=== PATIENT | female | born 1940 | race Caucasian/White ===

== ENCOUNTER 2017-04-12 12:44 | Emergency (ER) | payer OTHER ==
[~2017-04-12] VITALS: Ht 165.1 cm; Wt 72.6 kg
--- NOTE | 2017-04-12 12:50 | NUR ---
[id number] from home for s/p fall, +hematoma, +head lac, no KO, [id number] in the field. vss nad rr even and unlabored. pending er md evaluation. pt is deaf
--- NOTE | 2017-04-12 13:25 | NUR ---
pt taken to ct scan
[2017-04-12 13:26] LABS: HEMATOCRIT 39 % (33-45); HEMOGLOBIN 13.2 g/dL (11.5-14.8); MEAN CORPUSCULAR HEMOGLOBIN 32 PG (26.0-33.0); MEAN CORPUSCULAR HGB CONC 34 g/dl (31.0-36.0); MEAN CORPUSCULAR VOLUME 94 fL (82-100); PLATELET COUNT (AUTO) 235 /CMM (150-450); RDW COEFFICIENT OF VARIATION 12.3 (11.5-15.0); RED BLOOD CELL COUNT(AUTO) 4.08 MIL/uL (4.0-5.2); WHITE BLOOD COUNT (AUTO) 7.5 K/uL (4.3-11.0)
[2017-04-12] MEDS ORDERED: TDAP [DIPH/PERTUSSIS/TET] 0.5 ML VIAL IM ONE (13:36)
[2017-04-12 13:41] LABS: CALCIUM, SERUM 9.3 mg/dL (8.5-10.1); CARBON DIOXIDE 27 mmol/L (21-32); CHLORIDE 105 mmol/L (98-107); CREATININE 0.9 mg/dL (0.6-1.3); GLUCOSE 98 mg/dL (74-106); POTASSIUM 3.9 mmol/L (3.5-5.1); SODIUM SERUM 139 mmol/L (136-145); UREA NITROGEN, BLOOD 20 mg/dL (7-18)
[2017-04-12] MEDS: TDAP [DIPH/PERTUSSIS/TET] 0.5 ML VIAL IM ONE (13:44)
[2017-04-12 14:02] LABS: INR 0.93 (0.87-1.13); PROTHROMBIN TIME 9.7 SECS (9.5-12.7)
[2017-04-12] MEDS ORDERED: LIDOCAINE 1%-EPI 1:100,000 50 ML VIAL IJ ONE (14:33)
[2017-04-12 15:17] LABS: LYMPHOCYTES % (MANUAL) 19 % (16-48); MONOCYTES % (MANUAL) 6 % (0-11.0); NEUTROPHILS % (MANUAL) 75 (42-76)
[2017-04-12 15:58] VITALS: BP 142/68
[2017-04-12] MEDS: LIDOCAINE 1%-EPI 1:100,000 20 ML VIAL TP ONE (15:58)
--- NOTE | 2017-04-12 15:58 | NUR ---
Patient discharged to home in stable condition. Written and verbal after care instructions given. Patient andfamily members verbalizes understanding of instruction.
== END 2017-04-12 15:59 | disposition home or self-care (01) ==
LOC: ER 12:46
DX: S01.01XA Laceration without foreign body of scalp, initial encounter (principal); W19.XXXA Unspecified fall, initial encounter; Y93.89 Activity, other specified; Y92.89 Other specified places as the place of occurrence of the external cause; Y99.8 Other external cause status
CPT/HCPCS: 12002; 36415; 70450; 72125; 80048; 85025; 85730; 90471; 90715; 99285; A4606; A6403; J3490; Z7610

== ENCOUNTER 2017-07-25 12:40 | Emergency (ER) | payer OTHER ==
[~2017-07-25] VITALS: Ht 162.6 cm; Wt 56.7 kg
--- NOTE | 2017-07-25 12:41 | NUR ---
LACERATION TO BACK OF HEAD S/P MECHANICAL FALL x 2 HR [facility] LAST TDAP ~ 1 YEAR AGO
[2017-07-25] MEDS ORDERED: TDAP [DIPH/PERTUSSIS/TET] 0.5 ML VIAL IM ONE ×2 (13:27→13:30)
--- NOTE | 2017-07-25 13:28 | NUR ---
TDAP CANCELLED RECEIVED IN 2016
--- NOTE | 2017-07-25 13:36 | NUR ---
PT BACK FROM CT
--- NOTE | 2017-07-25 14:20 | NUR ---
Patient discharged to home in stable condition. Written and verbal after care instructions given. Patient verbalizes understanding of instruction.
[2017-07-25 14:23] VITALS: BP 135/74
== END 2017-07-25 14:24 | disposition home or self-care (01) ==
LOC: ER 12:45
DX: S01.01XA Laceration without foreign body of scalp, initial encounter (principal); F03.90 Unspecified dementia, unspecified severity, without behavioral disturbance, psychotic disturbance, mood disturbance, and anxiety; W18.39XA Other fall on same level, initial encounter; Y93.01 Activity, walking, marching and hiking; Y92.89 Other specified places as the place of occurrence of the external cause; Y99.8 Other external cause status
CPT/HCPCS: 70450-TC; 71045-TC; 90715; A4606; A6402; Z7610

== ENCOUNTER 2020-05-05 11:27 | Emergency (ER) | payer OTHER ==
[~2020-05-05] VITALS: Ht 175.3 cm; Wt 54.4 kg
--- NOTE | 2020-05-05 11:38 | NUR ---
DAVID MORALES AT BEDSIDE FOR WOUND CLEANING.
[2020-05-05 11:40] VITALS: BP 115/61
--- NOTE | 2020-05-05 11:47 | NUR ---
SEEN AND EXAMINED BY
--- NOTE | 2020-05-05 12:34 | NUR ---
PT IS WHEELED TO CT SCAN.
--- NOTE | 2020-05-05 15:08 | NUR ---
Patient discharged to home in stable condition. Written and verbal after care instructions given. Patient verbalizes understanding of instruction.
== END 2020-05-05 15:09 | disposition home or self-care (01) ==
LOC: ER 11:30
DX: S00.01XA Abrasion of scalp, initial encounter (principal); F03.90 Unspecified dementia, unspecified severity, without behavioral disturbance, psychotic disturbance, mood disturbance, and anxiety; W18.39XA Other fall on same level, initial encounter; Y93.89 Activity, other specified; Y92.89 Other specified places as the place of occurrence of the external cause; Y99.8 Other external cause status
CPT/HCPCS: 70450; 99284; A6403

== ENCOUNTER 2022-01-01 17:49 | Emergency (ER) | payer OTHER ==
[~2022-01-01] VITALS: Ht 172.7 cm; Wt 56.7 kg
[2022-01-01 18:11] VITALS: BP 148/71
[2022-01-01] MEDS ORDERED: LIDOCAINE 1% INJ 50 ML MDV IJ ONE (18:49)
[2022-01-01] MEDS ORDERED: LIDOCAINE HCL/PF 1% 30 ML VIAL TP ONE (19:00)
[2022-01-01] MEDS ORDERED: TDAP [DIPH/PERTUSSIS/TET] 0.5 ML VIAL IM ONE ×2 (19:00→19:25)
[2022-01-01] MEDS ORDERED: BACI/NEOM/POLY B OINT PKT 1 UDPKT PACKET TP ONE (19:00)
[2022-01-01] MEDS ORDERED: BACI/NEOM/POLY B OINT PKT 1 UDPKT PACKET ONE (19:25)
== END 2022-01-01 19:49 | disposition home or self-care (01) ==
LOC: ER 17:58
DX: S81.811A Laceration without foreign body, right lower leg, initial encounter (principal); W18.30XA Fall on same level, unspecified, initial encounter; Y93.89 Activity, other specified; Y92.89 Other specified places as the place of occurrence of the external cause; Y99.8 Other external cause status
CPT/HCPCS: 99283; 12002; 90471; 90715; J3490 ×2